=== PATIENT | male | born 1945 | race Caucasian/White ===

== ENCOUNTER 2024-04-30 00:25 | Emergency (ER) | payer OTHER ==
[2024-05-07 12:29] LABS: Bilirubin Negative (Negative); Blood, Urine Moderate (Negative); Clarity Clear (Clear); Glucose, Urine (Dipstick) Negative (Negative); Ketone, Urine Negative (Negative); Leukocyte Negative (Negative); Nitrite Negative (Negative); Protein, Urine (Dipstick) Negative (Neg-Trace); Squamous Epithelial 0-3 HPF (0-3); Urobilinogen 0.2 mg/dL (Less than 2); WBC/HPF 0-3 HPF (0-3)
[2024-05-07 12:30] LABS: Bacteria/HPF Rare-Few HPF (None Seen)
== END 2024-04-30 02:02 | disposition home or self-care (01) ==
LOC: MADERS 00:25
DX: R33.9 Retention of urine, unspecified (principal); E11.9 Type 2 diabetes mellitus without complications; I10 Essential (primary) hypertension
CPT/HCPCS: 74176; 81001

== ENCOUNTER 2024-04-30 07:18 | Emergency (ER) | payer OTHER | END 2024-04-30 11:33 | disposition home or self-care (01) | LOC: MADERS 07:18 | DX: T83.031A Leakage of indwelling urethral catheter, initial encounter (principal); E11.9 Type 2 diabetes mellitus without complications; I10 Essential (primary) hypertension | CPT/HCPCS: 99283 ==

== ENCOUNTER 2024-06-01 18:14 | Emergency (ER) | payer OTHER ==
[~2024-06-01 18:14] MED LIST: EPINEPHrine 1 MG/10 ML Abboject SYRINGE ONE
[2024-06-01 18:36] LABS: Hematocrit 38.9 % (42.0-52.0); Hemoglobin 12.4 g/dL (14.0-18.0); Mean Corpuscular HGB CONC 31.8 g/dL (32.0-36.0); Mean Corpuscular Hemoglobin 29.1 pg (27.0-31.0); Mean Corpuscular Volume 91.5 fl (78.0-98.0); Mean Platelet Volume 7.9 fL (7.4-10.4); Platelet Count 135 10x3/uL (130-400); Red Blood Cell (RBC) Count 4.25 mill/uL (4.70-6.10); White Blood Cell (WBC) Count 14.2 10x3/uL (4.8-10.8)
[2024-06-01 18:47] LABS: Band 8 % (5-11); Eosinophils 3 % (0-10); MDiff Complete? YES; Manual Diff?? YES; Monocytes 4 % (0-10); Neutrophil 30 % (42-75); Reactive Lymphocytes 24 % (0-10)
[2024-06-01 18:48] LABS: ALT (SGPT) 119 U/L (8-55); AST (SGOT) 133 U/L (5-34); Albumin 2.7 g/dL (3.4-4.8); Alkaline Phosphatase 89 U/L (40-110); Anion Gap 27 mmol/L (10-20); BUN (Urea Nitrogen) 22 mg/dL (8.4-25.7); Bilirubin, Total 0.7 mg/dL (0.2-1.2); Calc. Creatinine Clearance 0 mL/min (70-130); Calcium 8.9 mg/dL (7.8-10.44); Carbon Dioxide 14 mmol/L (23-31); Chloride 104 mmol/L (98-107); Estimated GFR 50; Globulin 2.8 g/dL (2.4-3.5); Glucose 354 mg/dL (83-110); Lymphocytes 31 % (21-51); Nucleated RBC (Manual Ct) 1 % (0); Potassium 3.5 mmol/L (3.5-5.1); Protein, Total 5.5 g/dL (5.8-8.1); Sodium 141 mmol/L (136-145)
[2024-06-01 18:49] LABS: Platelet Adequacy Comment Appears Adequate; Troponin I 0.051 ng/mL (< 0.028)
== END 2024-06-01 20:16 | disposition expired ==
LOC: MADERS 18:14
DX: I46.9 Cardiac arrest, cause unspecified (principal); I10 Essential (primary) hypertension; E11.9 Type 2 diabetes mellitus without complications
CPT/HCPCS: 80053; 84484; 85025; 99285; J0171